=== PATIENT | male | born 1980 | race Caucasian/White ===

== ENCOUNTER 2017-07-24 10:15 | Emergency (ER) | payer SELFPAY ==
[2017-07-24 10:30] VITALS: BP 153/96
--- NOTE | 2017-07-24 10:32 | ED Physician Documentation ---
General Adult - HISTORIAN Historian: patient - HPI Stated Complaint: Dental pain Chief Complaint: General Adult Onset: days ago (2) Timing: still present Severity: moderate Further Comments: yes (Pt is a 37 yo male with dental pain in his L lower jaw x 2 days. Pt has had difficulty sleeping. Pt has dental appt later this week.) - ROS CONST: no problems EYES/ENT: other (dental pain) CVS/RESP: none GI/: none MS/SKIN/LYMPH: none - PAST HX Past History: none Allergies/Adverse Reactions: Allergies Allergy/AdvReac Type Severity Reaction Status Date / Time No Known Allergies Allergy Verified 07/24/17 10:25 Home Medications: Ambulatory Orders Medication Instructions Recorded NK [NK] 07/24/17 - SOCIAL HX Smoking History: non-smoker Alcohol Use: occasionally - FAMILY HX Family History: No - VITAL SIGNS Vital Signs: Vital Signs Temp Pulse Resp BP Pulse Ox 77 18 153/96 99 07/24/17 10:27 07/24/17 10:27 07/24/17 10:27 07/24/17 10:27 - REVIEWED ASSESSMENTS Nursing Assessment Reviewed: Yes Vitals Reviewed: Yes Progress - Progress Progress: Rx Penicillin VK 500 mg. Take one every 8 hrs for 10 days. Rx Onyx (5/325). Take one or two by mouth every 4 to 6 hrs as needed for moderate to severe pain. General Adult Physical Exam - PHYSICAL EXAM GENERAL APPEARANCE: mild distress EENT: pharynx normal, other (dental caries, tenderness, L lower molar) NECK: normal inspection, supple RESPIRATORY: no resp distress, chest non-tender, breath sounds normal CVS: reg rate & rhythm, heart sounds normal BACK: normal inspection SKIN: warm/dry, normal color EXTREMITIES: non-tender, normal range of motion, no evidence of injury NEURO: oriented X3, motor nml, sensation nml Discharge Clincal Impression: dental pain Referrals: Primary Doctor,No [Primary Care Provider] - Condition: Good Disposition: 01 HOME, SELF-CARE Decision to Admit: NO Decision Time: 10:34
== END 2017-07-24 10:39 | disposition home or self-care (01) ==
LOC: ED 10:15
DX: K08.89 Other specified disorders of teeth and supporting structures (principal)
CPT/HCPCS: 99282